=== PATIENT | female | born 1965 | race Caucasian/White ===

== ENCOUNTER 2017-02-06 08:30 | Day surgery (SDC) | payer OTHER ==
[~2017-02-06] VITALS: Ht 149.9 cm; Wt 81.5 kg
[~2017-02-06 08:30] MED LIST: IBUP-1542 PO
[2017-02-06 09:29] VITALS: Ht 149.9 cm; Wt 81.5 kg
[2017-02-06] MEDS ORDERED: LISINOPRIL (09:32)
[2017-02-06] MEDS ORDERED: LEVOTHYROXINE (09:33)
[2017-02-06] MEDS ORDERED: HYDROCHLOROTHIAZIDE (09:33)
[2017-02-06] MEDS ORDERED: METAMUCIL (09:33)
--- NOTE | 2017-02-06 10:28 | OPPN ---
Date/Time of Note Date/Time of Note DATE: 02/06/17 TIME: 10:27 Operative Report Preoperative Diagnosis Screening Postoperative Diagnosis Internal hemorrhoids No colon neoplasm is identified Operation/Procedure Performed Colonoscopy Surgeon see signature line marketing operations assistant None Anesthesia: MAC Estimated blood loss: none Transfusion Required none Specimen None Grafts/Implants none Complications none SONA MUNGUIA MD Feb 06, 2017 10:28
[2017-02-06] MEDS ORDERED: PROPOFOL 40 ML ONE (10:34)
[2017-02-06] MEDS ORDERED: LIDOCAINE 100 MG SYRINGE ONE (10:34)
[2017-02-06 10:56] VITALS: BP 126/62; PULSE 61; RESP 18
[2017-02-06 11:05] VITALS: BP 114/67; RESP 20
--- NOTE | 2017-02-06 16:57 | GILP ---
DATE OF PROCEDURE: 02/06/2017 NAME OF PROCEDURE: Colonoscopy. SURGEON: Sona Zimmerman MD PREOPERATIVE DIAGNOSIS: Screening colonoscopy. POSTOPERATIVE DIAGNOSES 1. Colonoscopy all the way to the cecum. 2. Internal hemorrhoids. 3. No colon neoplasm was identified. INDICATION FOR THE PROCEDURE: Ms. Monica Mahan is a 51-year-old female patient who was scheduled f or screening colonoscopy. The procedure and possible complications are well explained to the patient, she understood and conse nted to the procedure. DESCRIPTION OF PROCEDURE: Under the influence of anesthesia, the colonoscope was carefully introduc ed in the rectum and under direct vision, it was advanced all the way to the cecum. FINDINGS: The patient had internal hemorrhoids. No colon neoplasm was identified. She tolerated the procedure very well and there was no complication from the procedure. At the end of the procedure, she was awake with stable vital signs and she was discharged home to the care of h er family. IMPRESSION: 1. Colonoscopy all the way to the cecum. 2. Internal hemorrhoids. 3. No colon neoplasm was identified. PLAN: Next screening colonoscopy in 10 years. Dictated By: SONA FOLEY/ROBERTA Conf#: [id number] DID#: [id number]
== END 2017-02-06 11:07 | disposition home or self-care (01) ==
LOC: GIL 08:30
PROVIDERS: ATTEND Internal Medicine Gastroenterology
DX: Z12.11 Encounter for screening for malignant neoplasm of colon (principal); K64.8 Other hemorrhoids; I10 Essential (primary) hypertension; E66.01 Morbid (severe) obesity due to excess calories; Z68.36 Body mass index [BMI] 36.0-36.9, adult; E03.9 Hypothyroidism, unspecified
CPT/HCPCS: 45378; 84703; J2001; Z7610

== ENCOUNTER 2017-06-29 13:07 | Inpatient (IN) | END 2017-07-02 16:20 | disposition home or self-care (01) | DRG 440 ==